=== PATIENT | male | born 1990 | race Caucasian/White ===

== ENCOUNTER 2022-08-04 17:07 | Emergency (ER) | payer OTHER ==
[~2022-08-04] VITALS: Ht 170.2 cm; Wt 110.0 kg
[2022-08-04] MEDS ORDERED: HALOPERIDOL LACTATE 5MG/ML VIAL IM ONE (17:30)
[2022-08-04] MEDS ORDERED: DIPHENHYDRAMINE 50MG/ML VIAL IM ONE (17:30)
[2022-08-04] MEDS ORDERED: LORAZEPAM 2MG/ML CPJ IM ONE (17:30)
[2022-08-04 21:11] LABS: BASOPHILS % 0.3 % (0.0-2.0); EOSINOPHILS % 0.1 % (0.0-5.0); HEMATOCRIT. 47.2 % (42.0-52.0); HEMOGLOBIN. 16.5 g/dL (14.0-18.0); LYMPHOCYTES % 34.2 % (20.0-50.0); MEAN CORPUSCULAR HEMOGLOBIN 32.3 pg (28.0-32.0); MEAN CORPUSCULAR VOLUME 92.4 fL (80.0-94.0); MEAN PLATELET VOLUME 7.4 fl (7.4-10.4); MONOCYTES % 4.3 % (2.0-8.0); NEUTROPHILS % 61.1 % (40.0-76.0); PLATELET 300 x1000/uL (130-400); RED BLOOD CELL COUNT 5.11 mill/uL (4.7-6.1)
[2022-08-04 21:32] LABS: CHLORIDE 111 mEq/L (98-107)
[2022-08-04 21:38] LABS: ETHANOL BLOOD 194 mg/dL
[2022-08-05 00:25] VITALS: BP 135/76
== END 2022-08-05 00:27 | disposition home or self-care (01) ==
LOC: EDBD 17:07 → ER 17:07
DX: R45.1 Restlessness and agitation (principal)
CPT/HCPCS: 20520; 36415; 80048; 80307; 80320; 80329; 85025; 96372; 99284; J1200; J1630; J2060; Z7610; G0480